=== PATIENT | male | born 1950 | race Caucasian/White ===

== ENCOUNTER 2017-11-19 12:33 | Emergency (ER) | payer MEDICARE, BC ==
[2017-11-19 12:51] VITALS: BP 172/90
--- NOTE | 2017-11-19 13:46 | UC ---
Delma Daley Gabriel, scribed for Britta Falk MD on 11/19/17 at 1318 . Hand/Wrist HPI - HPI Summary HPI Summary: This patient is a 67 year old M presenting to [facility] c/o 4th and 5th phalange pain on the right hand. Pt slipped and hit his hand on his bathtub 2 months ago , initially there was ecchymosis and swelling on right hand, dorsum. Currently there is only minor swelling and pain when the pt puts pressure on these two digits. The patient rates the pain 6/10 in severity. Patient denies wrist pain. Pt is left dominate. There were no other injuries on fall. no wrist, elbow pain , no paresthesia. no analgesia taken Patients medication reviewed this visit. - History Of Current Complaint Chief Complaint: UCUpperExtremity Stated Complaint: HAND INJURY Time Seen by Provider: 11/19/17 13:12 Hx Obtained From: Patient Onset/Duration: Still Present Severity Initially: Moderate Severity Currently: Moderate Pain Intensity: 6 Pain Scale Used: 0-10 Numeric Aggravating Factor(s): Other - pressure - Allergies/Home Medications Allergies/Adverse Reactions: Allergies Allergy/AdvReac Type Severity Reaction Status Date / Time No Known Allergies Allergy Verified 11/19/17 12:51 PMH/Surg Hx/FS Hx/Imm Hx Cardiovascular History: Hypertension, Other Other Cardiovascular History: HLD Other History Of: Negative For: HIV - Surgical History Surgical History: None - Family History Known Family History: Negative: Seizure Disorder, Blood Disorder - Social History Alcohol Use: Occasionally Alcohol Amount: 6 beers on friday nights Substance Use Type: None Smoking Status (MU): Never Smoked Tobacco Have You Smoked in the Last Year: No Review of Systems Constitutional: Negative - fever Musculoskeletal: Edema, Other: - 4th and 5th phalange pain All Other Systems Reviewed And Are Negative: Yes Physical Exam - Summary Physical Exam Summary: Vital Signs Reviewed: Yes A+Ox3, no distress Eyes: Conjunctiva Clear ENT: Hearing grossly normal neck: supple Respiratory: Positive: No respiratory distress, No accessory muscle use Cardiovascular: skin color reflect adequate perfusion 2+ radial, 2+ ulnar, CBT < 2 sec Musculoskeletal Exam: + flex/ext MCP, PIP, DIP with discomfort against resistance at dorsum MCP no crepitus mild discomfort along metacarpal distal right 4>5 Neurological: Positive: Alert, ambulatory without difficulty Psychological: Positive: Normal Response To Family Skin: Positive: no rash, mild residual edema lateral, dorsum hand no ecchymosis Triage Information Reviewed: Yes Vital Signs: Initial Vital Signs Temp 98.5 F 11/19/17 12:46 Pulse 67 11/19/17 12:46 Resp 15 11/19/17 12:46 BP 172/90 11/19/17 12:46 Pulse Ox 98 11/19/17 12:46 Diagnostics - Radiology finger Xray Radiology Interpretation Completed By: Radiologist - NO ACUTE OSSEOUS INJURY TO THE FOURTH OR FIFTH DIGITS OF THE RIGHT HAND, THOUGH EVALUATION OF THE PROXIMAL PHALANX OF THE FOURTH DIGIT IS LIMITED BY THE PRESENCE OF METALLIC JEWELRY. IF SYMPTOMS PERSIST, RECOMMEND REPEAT IMAGING. Dr. Falk has reviewed this report. Hand/Wrist Course/Dx - Course Course Of Treatment: Blood pressure noted and patient informed to follow up with PCP. Pt with discomfort right 4/5 MCP after fall 2 months ago. pt LHD. imaging neg. recommend shen taping - pt declined. ortho referral for strenth and ROM. motrin/apap. rest. elevate - Differential Dx/Diagnosis Provider Diagnoses: right 4th, 5th finger sprain Discharge - Sign-Out/Discharge Documenting (check all that apply): Discharge/Admit/Transfer - Discharge Plan Condition: Stable Disposition: HOME Patient Education Materials: Finger Sprain (ED) [place]: [facility] [place],PT [Medical Doctor] - Brandon Almazan MD [Primary Care Provider] - Additional Instructions: - okay to alternate ibuprofen (Advil, Motrin) 600mg and tylenol every 3hours for pain. Take with food. Do NOT take for more then 4-5 days - okay to apply ice (wrapped in a towel) 20 minutes at a time, 2- 3times a day - contact a physical therapist to schedule a follow-up appointment for further evaluation and treatment. Contact your doctor or return with questions or concerns - Billing Disposition and Condition Condition: STABLE Disposition: Home The documentation as recorded by the Delma carrillo Gabriel accurately reflects the service I personally performed and the decisions made by , Britta Falk MD.
--- NOTE | 2017-11-19 13:47 | RAD ---
HISTORY: Fall, pain in fourth and fifth digits of the right hand COMPARISONS: None VIEWS: 6, Frontal, lateral, and oblique views of the fourth digit and fifth digit of the right hand. Evaluation of the proximal falx of the fourth digit is limited by the presence of metallic jewelry. FINDINGS: BONE DENSITY: Normal. BONES: There is no displaced fracture. JOINTS: There is no arthropathy. ALIGNMENT: There is no dislocation. SOFT TISSUES: Unremarkable. OTHER FINDINGS: None. IMPRESSION: NO ACUTE OSSEOUS INJURY TO THE FOURTH OR FIFTH DIGITS OF THE RIGHT HAND, THOUGH EVALUATION OF THE PROXIMAL PHALANX OF THE FOURTH DIGIT IS LIMITED BY THE PRESENCE OF METALLIC JEWELRY. IF SYMPTOMS PERSIST, RECOMMEND REPEAT IMAGING.
== END 2017-11-19 13:56 | disposition home or self-care (01) ==
LOC: UCEAST 12:33
DX: S63.614A Unspecified sprain of right ring finger, initial encounter (principal); S63.616A Unspecified sprain of right little finger, initial encounter; I10 Essential (primary) hypertension; W01.198A Fall on same level from slipping, tripping and stumbling with subsequent striking against other object, initial encounter; Y92.89 Other specified places as the place of occurrence of the external cause
CPT/HCPCS: 73140; 99211; G0463